=== PATIENT | female | born 1950 | race Caucasian/White ===

== ENCOUNTER → 2024-01-09 11:20 | Outpatient (REF) | payer MEDICARE, OTHER, SELFPAY | LOC: RAD 11:20 | PROVIDERS: ATTENDING PHYSICIAN Internal Medicine Cardiovascular Disease; FAMILY PHYSICIAN Family Medicine | DX: R09.89 Other specified symptoms and signs involving the circulatory and respiratory systems (principal) | CPT/HCPCS: 93880 ==

== ENCOUNTER → 2024-05-08 09:15 | Outpatient (REF) | payer MEDICARE, OTHER, SELFPAY | LOC: DHSLP 09:15 | PROVIDERS: ATTENDING PHYSICIAN Internal Medicine Critical Care Medicine; FAMILY PHYSICIAN Family Medicine | DX: G47.00 Insomnia, unspecified (principal) | CPT/HCPCS: 95810 ==

== ENCOUNTER → 2024-06-10 06:28 | Day surgery (SDC) | payer MEDICARE, OTHER, SELFPAY | LOC: GI 06:28 | PROVIDERS: ATTENDING PHYSICIAN Specialist | DX: Z12.11 Encounter for screening for malignant neoplasm of colon (principal); D12.3 Benign neoplasm of transverse colon; K63.5 Polyp of colon; Z86.010 Personal history of colon polyps | CPT/HCPCS: 45380; 88305 ==

== ENCOUNTER → 2024-08-11 07:43 | Outpatient (REF) | payer MEDICARE, OTHER, SELFPAY | LOC: WDC 07:43 | PROVIDERS: ATTENDING PHYSICIAN Obstetrics & Gynecology Gynecology; FAMILY PHYSICIAN Family Medicine | DX: Z12.31 Encounter for screening mammogram for malignant neoplasm of breast (principal) | CPT/HCPCS: 77063; 77067 ==

== ENCOUNTER → 2024-09-09 06:21 | Day surgery (SDC) | payer MEDICARE, OTHER, SELFPAY | LOC: GI 06:21 | PROVIDERS: ATTENDING PHYSICIAN Specialist; FAMILY PHYSICIAN Family Medicine | DX: R13.10 Dysphagia, unspecified (principal); K31.7 Polyp of stomach and duodenum | CPT/HCPCS: 43239; 88305; 88342 ==

== ENCOUNTER → 2024-09-29 04:00 | Outpatient (REF) | payer MEDICARE, OTHER, SELFPAY | LOC: DHSLP 04:00 | PROVIDERS: ATTENDING PHYSICIAN Internal Medicine Critical Care Medicine; FAMILY PHYSICIAN Family Medicine | DX: G47.19 Other hypersomnia (principal); R06.83 Snoring | CPT/HCPCS: 95800 ==

== ENCOUNTER → 2024-11-06 07:01 | Outpatient (REF) | payer MEDICARE, OTHER, SELFPAY | LOC: RAD 07:01 | PROVIDERS: FAMILY PHYSICIAN Family Medicine | DX: R29.898 Other symptoms and signs involving the musculoskeletal system (principal) | CPT/HCPCS: 70470; 72126; Q9967 ==

== ENCOUNTER → 2024-11-13 07:38 | Outpatient (REF) | payer MEDICARE, OTHER, SELFPAY | LOC: RAD 07:38 | PROVIDERS: ATTENDING PHYSICIAN Specialist; FAMILY PHYSICIAN Family Medicine | DX: K21.9 Gastro-esophageal reflux disease without esophagitis (principal) | CPT/HCPCS: 78264; A9541 ==

== ENCOUNTER → 2024-12-01 09:35 | Outpatient (REF) | payer MEDICARE, OTHER, SELFPAY | LOC: WDC 09:35 | PROVIDERS: ATTENDING PHYSICIAN Obstetrics & Gynecology Gynecology; FAMILY PHYSICIAN Family Medicine | DX: R92.2 Inconclusive mammogram (principal) | CPT/HCPCS: 76641 ==

== ENCOUNTER → 2024-12-22 08:02 | Outpatient (REF) | payer MEDICARE, OTHER, SELFPAY ==
[2024-12-22 09:11] LABS: Hematocrit 36.6 % (37.0-47.0); Hemoglobin 12.4 g/dL (12.0-16.0); Mean Corp Hgb Conc. 33.9 g/dL (33.0-37.0); Mean Corpuscular Hgb 30.8 pg (27.0-31.0); Mean Corpuscular Volume 90.8 fL (81.0-99.0); Mean Platelet Volume 9.2 fL (7.4-10.4); Platelet Count 269 10^3/uL (130-400); Red Blood Cell Count 4.03 10^6/uL (4.20-5.40); Red Cell Dist. Width 12.4 % (11.5-14.5); White Blood Cell Count 8.1 10^3/uL (4.8-10.8)
[2024-12-22 09:28] LABS: Blood Urea Nitrogen 11 mg/dl (7-17); Calcium 8.8 mg/dl (8.4-10.2); Carbon Dioxide 28 mmol/L (22-30); Chloride 97 mmol/L (98-107); Glucose 87 mg/dl (70-99); Sodium 133 mmol/L (135-145); eGFR > 60.00
[2024-12-22 09:33] LABS: Potassium 4.2 mmol/L (3.5-5.1)
== END ==
LOC: SDSPAT 08:02
PROVIDERS: ATTENDING PHYSICIAN Orthopaedic Surgery; FAMILY PHYSICIAN Family Medicine
DX: Z01.818 Encounter for other preprocedural examination (principal)
CPT/HCPCS: 36415; 80048; 85027

== ENCOUNTER 2024-12-29 05:57 | Day surgery (SDC) | payer MEDICARE, OTHER, SELFPAY ==
[2024-12-22 13:35] VITALS: BMI 19.5
[2024-12-29] VITALS (8 sets, daily range): BP systolic 120–133; BP diastolic 60–66; BMI 19.5
[2024-12-29] MEDS: TYLENOL 1000 MG PO (06:38)
[2024-12-29] MEDS: NORMOSOL-R/PLASMALYTE-A 1000 IV (06:38)
[2024-12-29] MEDS: CELEBREX 200 MG PO (06:38)
== END 2024-12-29 10:15 | disposition home or self-care (01) ==
LOC: SDS 05:57
PROVIDERS: ATTENDING PHYSICIAN Orthopaedic Surgery; FAMILY PHYSICIAN Family Medicine
PROC: 0LB60ZZ Excision of Left Lower Arm and Wrist Tendon, Open Approach (ICD-10-PCS; 2024-12-29)
PROC: 01N40ZZ Release Ulnar Nerve, Open Approach (ICD-10-PCS; 2024-12-29)
DX: M67.432 Ganglion, left wrist (principal); G56.22 Lesion of ulnar nerve, left upper limb
CPT/HCPCS: 25111

== ENCOUNTER 2025-05-08 15:40 | Emergency (ER) | payer MEDICARE, OTHER, SELFPAY ==
[2025-05-08 15:45] VITALS: BP 141/78
--- NOTE | 2025-05-08 15:53 | ED.GENMED ---
History of Present Illness
General
Chief Complaint: Allergic Reaction
Time Seen by Provider: 05/08/25 15:53
History of Present Illness
History of Present Illness:
REVIEW OF OLD RECORDS
- I reviewed records, the patient has a history of asthma, GERD, skin cancer; in December she had surgical removal of left wrist ganglion cyst
CHIEF COMPLAINT(S)
Swelling and itchiness around the eyes and throat tightness.
HISTORY OF PRESENT ILLNESS
The patient is a 75-year-old female who presented with swelling and itchiness around the eyes and a sensation of throat tightness. The symptoms began around the 3 oclock hour after she awakened from a short nap lasting approximately 10 to 15
minutes. Upon waking, she initially noticed dryness in her eyes, which progressed to significant itching. She took '5 milligrams of a childrens liquid antihistamine not containing diphenhydramine' but reported it was not effective, and she
experiences heart palpitations with Benadryl. The patient described the throat sensation as more of a sore throat than a sensation of closure. The patients airway appeared open upon examination, with no significant swelling of the uvula or airway
occlusion. Past history of similar reactions is denied, and she does not carry an epinephrine autoinjector. The patient mentioned that she ingested an apple with peanut butter before the nap but has had this combination previously without issues.
SOCIAL DETERMINANTS AFFECTING HEALTH
The patient mentioned using [employer] to order medications, which suggests reliance on online purchasing possibly due to medication availability or convenience.
MEDICATIONS
- Diltiazem
- Losartan
PHYSICAL EXAM
- Ear, Nose, and Throat: Tiny redness in the throat but no swelling of the uvula. Widely patent oropharyngeal airway
- Scleral chemosis noted
- Skin: Significant bilateral periorbital edema but no evidence of infection
Nursing notes reviewed and vital signs reviewed.
PLAN
1. Administer prednisone (steroid medication) to address swelling.
2. Administer Pepsid as an additional histamine teddy.
3. Administer a low dose (12.5 milligrams) of Benadryl to manage itching.
4. Advise the patient to continue using cold compresses on the eyes at home.
5. Monitor the patient after administration of medications.
DIFFERENTIAL DIAGNOSIS
The Differential Diagnosis includes, in no particular order and is not limited to:
1. Allergic reaction
2. Anaphylaxis
3. Angioedema
4. Contact dermatitis
5. Medication reaction
6. Food allergy
7. Viral pharyngitis
8. Acute sinusitis
9. Bacterial conjunctivitis
10. Stress-induced psychosomatic responses
RADIOLOGY
- Not indicated
EKG
- Not indicated
LABS
- Not indicated
UPDATE
- I reassessed patient at 4:45 PM. Although she had concerns about taking Benadryl, she did tolerate low-dose Benadryl and has no palpitations. She was also given Pepcid and steroids. I reassessed the oral airway and she has no edema.
Past History
Past History
ED Past Medical History: GERD, Hypercholesterolemia and Other (osteopenia)
ED Past Surgical History: None
Social History
Tobacco: Non-smoker
Alcohol: None
Personal:
Living: alone
Phy Exam
Physical Exam
Physical Exam:
See HPI
Course
Orders/Labs/Results
Orders:
Orders
05/08/25 16:04
Diphenhydramine [Benadryl] 12.5 mg PO NOW STA
Famotidine [Pepcid] 40 mg PO NOW STA
Prednisone [Deltasone] 20 mg PO NOW STA
05/08/25 16:20
Diphenhydramine [Benadryl Elixir] 12.5 mg PO NOW STA
Vital Signs
Initial and Last Documented VS:
Initial Vital Signs
Temp Pulse Resp BP Pulse Ox
36.6 C 70 16 141/78 97
05/08/25 15:45 05/08/25 15:45 05/08/25 15:45 05/08/25 15:45 05/08/25 15:45
Last Documented Vital Signs
Temp Pulse Resp BP Pulse Ox
36.6 C 70 16 141/78 97
05/08/25 15:45 05/08/25 15:45 05/08/25 15:45 05/08/25 15:45 05/08/25 15:45
*Pulse Oximetry
Patient hypoxic: no (97% on room air-normal)
*Critical Care Note
Total Time (30-74mins, 75-104mins- exclusive of procedures): Not Applicable
ED Attending Note
-
Portions of this chart may have been created with voice recognition software.� Occasional wrong word or��sound alike� substitutions may have occurred due to the inherent limitations of voice recognition software.
Discharge Plan
Departure
Patient Disposition: Home (Routine Discharge)
Date of Disposition: 05/08/25
Time of Disposition: 16:37
Patient with high blood pressure during this ER visit?: Yes
Discharge Problem:
Allergic reaction
Instructions: Allergic reaction - ED discharge instructions
Prescriptions:
New
prednisone 20 mg tablet
20 mg PO DAILY Qty: 4 0RF
No Action
therapeutic multivitamin Tablet
1 tab PO DAILY
acetaminophen 500 mg Tablet
1,000 mg PO Q6HPRN PRN (Reason: mild pain)
calcium carbonate 500 mg calcium (1,250 mg) Tablet
500 mg PO DAILY
omeprazole 20 mg Capsule,Delayed Release(Dr/Ec)
20 mg PO DAILY
Estring 2 mg (7.5 mcg /24 hour) Ring
1 vag ring VAGINAL [id number]
cholecalciferol (vitamin D3) [Vitamin D3] 25 mcg (1,000 unit) Capsule
50 mcg PO DAILY
Prolia 60 mg/mL Syringe
60 mg SC [id number]
atorvastatin 80 mg Tablet
80 mg PO DAILY
zaleplon 5 mg Capsule
5 mg PO HS PRN (Reason: insomnia)
aspirin 81 mg Capsule
81 mg PO DAILY
diltiazem HCl 120 mg Capsule,Extended Release 12 Hr
120 mg PO DAILY
B Complex w-Vit C 83-21-21-5-250 mg Tablet
1 tab PO DAILY
PreserVision AREDS-2 250-90-40-1 mg Capsule
1 tab PO BID
magnesium citrate 100 mg Capsule
80 mg PO DAILY
Tumeric
1 dose PO DAILY
Referrals:
Deejay Peck MD [Active, Ophthalmology]
UNKNOWN - PT DOES,NOT KNOW [Family Provider]
Activity Restrictions/Additional Instructions:
We gave you 12.5 mg of liquid diphenhydramine (Benadryl). The typical [id number] children's Benadryl dose is 12.5 mg per 5 mL. There is for you could take 5 mL of this every 6 hours as needed. If symptoms persist, continue steroids�I sent a
prescription for steroids to your pharmacy. I recommend that you also try cool compresses to both eyes as well. Since the sclera of the eye also seems swollen, I have given you the contact information of the on-call ep technologist�call for
follow-up if symptoms persist.
Interventions
Interventions:
*Risk Screen - Suicide Last Done: 05/08/25 15:45
*General Assessment Last Done: 05/08/25 15:45
*Neglect/Abuse Screening Last Done: 05/08/25 15:45
ED- Cardiac Assessment Last Done: 05/08/25 15:57
ED- Pulmonary Assessment Last Done: 05/08/25 15:57
ED-Skin Assessment Last Done: 05/08/25 15:57
Discharge Date and Time
Print Language: SWEDISH
[2025-05-08] MEDS: DELTASONE 20 MG PO (16:23)
[2025-05-08] MEDS: PEPCID 40 MG PO (16:23)
[2025-05-08] MEDS: BENADRYL ELIXIR 12.5 MG PO (16:23)
== END 2025-05-08 18:52 | disposition home or self-care (01) ==
LOC: EMR 15:40
PROVIDERS: EMERGENCY PHYSICIAN Emergency Medicine
DX: T78.40XA Allergy, unspecified, initial encounter (principal); X58.XXXA Exposure to other specified factors, initial encounter; E78.00 Pure hypercholesterolemia, unspecified; J45.909 Unspecified asthma, uncomplicated
CPT/HCPCS: 99283

== ENCOUNTER → 2025-06-03 10:22 | Outpatient (REF) | payer MEDICARE, OTHER, SELFPAY | LOC: RAD 10:22 | PROVIDERS: ATTENDING PHYSICIAN Internal Medicine Rheumatology; FAMILY PHYSICIAN Family Medicine | DX: R05.3 Chronic cough (principal); R06.03 Acute respiratory distress; M34.1 CR(E)ST syndrome | CPT/HCPCS: 71046 ==

== ENCOUNTER → 2025-06-07 07:04 | Outpatient (REF) | payer MEDICARE, OTHER, SELFPAY | LOC: RCS 07:04 | PROVIDERS: ATTENDING PHYSICIAN Internal Medicine Rheumatology; FAMILY PHYSICIAN Family Medicine; OTHER PHYSICIAN Internal Medicine Cardiovascular Disease | DX: M34.1 CR(E)ST syndrome (principal); R05.3 Chronic cough; R06.02 Shortness of breath | CPT/HCPCS: 93306 ==

== ENCOUNTER → 2025-06-29 06:47 | Outpatient (REF) | payer MEDICARE, OTHER, SELFPAY | LOC: RSP 06:47 | PROVIDERS: ATTENDING PHYSICIAN Internal Medicine Rheumatology; FAMILY PHYSICIAN Family Medicine | DX: M34.1 CR(E)ST syndrome (principal); R05.3 Chronic cough; R06.02 Shortness of breath | CPT/HCPCS: 88738; 94010; 94727; 94729 ==

== ENCOUNTER → 2025-08-12 11:02 | Outpatient (REF) | payer MEDICARE, OTHER, SELFPAY | LOC: WDC 11:02 | PROVIDERS: ATTENDING PHYSICIAN Obstetrics & Gynecology Gynecology; FAMILY PHYSICIAN Family Medicine | DX: Z12.31 Encounter for screening mammogram for malignant neoplasm of breast (principal); Z12.39 Encounter for other screening for malignant neoplasm of breast | CPT/HCPCS: 77063; 77067 ==

== ENCOUNTER → 2025-10-01 13:32 | Outpatient (REF) | payer MEDICARE, OTHER, SELFPAY | LOC: WDC 13:32 | PROVIDERS: ATTENDING PHYSICIAN Obstetrics & Gynecology Gynecology; FAMILY PHYSICIAN Family Medicine | DX: R92.30 Dense breasts, unspecified (principal) | CPT/HCPCS: 76641 ==